=== PATIENT | male | born 1970 | race Caucasian/White ===

== ENCOUNTER → 2018-03-02 07:10 | Outpatient (CLI) | payer OTHER, SELFPAY ==
[2018-03-02 08:20] LABS: Cholesterol 195 mg/dL (200); High Density Lipoprotein 43 mg/dL; Triglycerides 188 mg/dL; Very Low Density Lipoprotein 38 mg/dL (5-40)
--- OUTSIDE RECORDS SUMMARY | 2018-05-06 09:09 | XMS RPT_ITS ---
:1970 Author Organization OH[facility] Care Team Providers Name Role Phone JUAN F FARMER Attending Unavailable FARMER, JUAN F L Referring Unavailable FARMER, JUAN F L Referring Unavailable FARMER, JUAN F L Referring Unavailable FARMER, JUAN F L Referring Unavailable FARMER, JUAN F L Referring Unavailable FARMER, JUAN F L Referring Unavailable FARMER, JUAN F L Attending Unavailable FARMER, JUAN F L Referring Unavailable FARMER, JUAN F L Referring Unavailable FARMER, JUAN F L Attending Unavailable FARMER, JUAN F L Referring Unavailable FARMER, JUAN F L Referring Unavailable Farmer, Juan F Attending Unavailable Farmer, Juan F Referring Unavailable Farmer, Juan F Primary Care Unavailable PROBLEMS PROBLEMS DATE TYPE CONDITION / CODE ATTENDING STATUS SOURCE 03/02/2018 Unknown Z79.899 - Other Farmer, Active [place] [facility] (current) drug Hospital therapy / Repository Z79.899(ICD-10) 08/14/2017 Active Abnormal levels NA Active [facility] of other serum [facility] enzymes / Repository R74.8(ICD-10) 08/14/2017 Active Myalgia, NA Active [facility] unspecified site [facility] / M79.10(ICD-10) Repository 03/07/2017 Active Frequency of NA Active [facility] micturition / [facility] R35.0(ICD-10) Repository 08/13/2017 Active Other polyuria / NA Active [facility] R35.8(ICD-10) [facility] Repository 07/05/2017 Active Tremor, NA Active [facility] unspecified / [facility] R25.1(ICD-10) Repository 07/05/2017 Active Paresthesia of NA Active [facility] skin / [facility] R20.2(ICD-10) Repository 07/03/2017 Active Myalgia / NA Active [facility] M79.1(ICD-10) [facility] Repository 06/29/2017 Active Muscle weakness NA Active [facility] (generalized) / [facility] M62.81(ICD-10) Repository 06/29/2017 Active Other specified NA Active [facility] disorders of [facility] muscle / Repository M62.89(ICD-10) 06/29/2017 Active Impaired fasting NA Active [facility] glucose / [facility] R73.01(ICD-10) Repository PROCEDURES PROCEDURES No Procedure Records FoundRESULTS RESULTS LIPID PROFILE Collected: 03/02/2018 Status: F Source: [place] 7:[address] [facility] REPOSITORY TYPE CODE TESTS RESULT OUT OF RANGE REFERENCE UNITS LAB L501.4900 200 mg/dL Normal CHOL 195 Result Comment: <200 mg/dL Desirable 200-240 mg/dL Borderline >240 mg/dL High Risk LAB L501.5000 mg/dL Normal TRIG 188 Result Comment: The drugs N-Acetylcysteine and Metamizole may falsely depress this assay. Serum Triglycerides Reference Interval Normal <150 mg/dL Borderline high 150 - 199 mg/dL High 200 - 499 mg/dL Very High > or = 500 mg/dL LAB L501.6400 mg/dL Normal HDL 43 Result Comment: The drugs N-Acetylcysteine and Metamizole may falsely depress this assay. Reference Range HDL <40 mg/dL Low HDL Cholesterol HDL >or= 60 mg/dL High HDL Cholesterol LAB L501.6500 0-130 mg/dL Normal LDL 114 LAB L501.6600 5-40 mg/dL Normal VLDL 38 Performed By: #### L500.4100 #### [facility] [address] [place], [place], [address] PROGRESS Observed: 11/14/2017 Status: COMPLETED Source: [place] 5:34 PM CLINIC [facility] REPOSITORY HNO ID: [id number] Author: Juan F Farmer Service: (none) Author Type: Physician Type: Progress Notes Filed: 11/14/2017 5:41 PM Note Text: CC: Fabian Juarez is a 46 year old male who presents to the office for follow up HPI: Previously Patient present with in the office today ? Persistent and increased symptoms of hand tremor, with rest and with action per patient, b/l hands, right >left, is RHD. 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 ?Not dropping objects, no known injuries. ?Also weakness b/l thighs/legs and tingling in b/l lower legs diffusely. ?No recent falls, slow to get out of a seated position to stand. Difficulty with even climbing 1 flight of steps. ? is concerned that he is sometimes awkward in his gait, shuffling like. ??Father had parkinson's disease ? ?Arthritis, hand, feet, shoulders, neck, back, slightly worse in cold winter weather. ?Trying to keep joints warm ? Hemorrhoids, internal, ?Didn't like proctofoam given by EMERGENCY DEPARTMENT doctor, flared up recently due to constipation, trying to keep bowels more regular with less soda and coffee intake, more water intake. ?Intermittent BRBPR when flared up. ? Urinary frequency symptoms, now urinating 1-2 times per night for the last few months, no known hx of BPH or prostate cancer, doesn't know fmhx well. ?No burning or blood in urine or flank pain, never on medication prior for this. ? Muscle spasms, sometimes in legs or neck or arms, no recent trauma ? HPL, recently diagnosed, was started on Lipitor ? Cholesterol, Total Date Value Ref Range Status 01/22/2017 171 100 - 199 mg/dL Final ? HDL Cholesterol Date Value Ref Range Status 01/22/2017 37 (L) >45 mg/dL Final ? LDL Cholesterol Date Value Ref Range Status 01/22/2017 91 60 - 129 mg/dL Final ? Triglyceride Date Value Ref Range Status 01/22/2017 215 (H) 30 - 149 mg/dL Final ? At last appt in August ? Was having some muscle aches, CK was elevated, myoglobin was normal in urine, was recently started on Lipitor for HPL ? Continues to have urinary frequency and polyuria, no flank pain or hematuria, sometimes urgency symptoms. Taking Flomax at bedtime with some relief. Still having daytime symptoms, hba1c was normal ? Occasional headaches, is concerned about if his BLOOD PRESSURE is elevated, hasn't been regularly checking BLOOD PRESSURE at home Currently Muscle aches, b/l leg weakness, seems to be continuing, also feels like he is still shuffling his gait and not feeling well balanced in general. Stuttering a lot, word finding difficulty. No obvious memory short term or jail recall difficulty. No getting lost when driving, no seizure like tonic clonic movement concerns. Had CT brain in the recent past which was normal Headaches are occasional, no worsening of symptoms Elevated CK, last checked in August, Hasn't been on statins in months. Has appt for opinion by Neurologist in 3 weeks, Dr. Malagon PAST MEDICAL HISTORY Diagnosis Date - Arthritis ? Rheumatoid arthrits [facility] Dr[facility] PAST SURGICAL HISTORY Procedure Laterality Date - APPENDECTOMY 1977 - HERNIA REPAIR HX 09/2003 Current Outpatient Prescriptions: tamsulosin ER (FLOMAX) 0.4 mg cp24 Take 1 capsule by mouth daily at bedtime. latanoprost (XALATAN) 0.005 % ophthalmic solution Use 1 Drop in both eyes daily at bedtime. TO AFFECTED EYE(S) Ibuprofen 200 mg cap Take by mouth every 4 hours as needed. FOR PAIN. No current facility-administered medications for this visit. ALLERGIES Allergen Reactions - Penicillins Swelling - Pravachol [Pravasta* Myalgia - Vicodin [Hydrocodon* Mental Status Change Social History Marital status: Spouse name: Years of education: Number of children: Social History Main Topics Smoking status: Former Smoker Packs/day: 0.00 Years: 0.00 Quit date: 02/12/2003 Smokeless tobacco: Current User Alcohol use: Yes Comment: occasionally Drug use: No Sexual activity: Yes Partners with: Female ROS: See HPI PE: BP 120/84 Pulse 64 Temp (Src) 98.2 (Left Tympanic) Resp 16 Wt 244 lb (110.7kg) Gen: AANDOX3, NAD, non-toxic appearing HEENT: PERRLA, EOMs intact b/l, nares without drainage, pharynx without erythema, exudate, lesions, or drainage. Uvula midline. Neck: No LAD, no thyromegaly, no meningismus. CV: RRR, no murmur Lungs: CTA b/l, no wheezing Skin: No rashes, lesions, or wounds on exposed skin. Muscle weakness with thigh / hip flexion symmetric b/l legs, normal UE muscle strength which is symmetric Negative SLR, no spinal TTP, mild thoracic paraspinal and latissimus area TTP, mild thigh proximal TTP without obvious deformity Normal shoulder shrug and biceps/triceps strength Some word finding difficulty present, able to answer questions appropriately ASSESSMENT/PLAN: 1. Muscle stiffness - ICD9: 728.9, ICD10: M62.89 (primary diagnosis) - unsure of cause, recheck labs, follow up with neurologist for further work up / opinion - ? Need for MRI brain and muscle/nerve biopsy 2. Generalized muscle weakness - ICD9: 728.87, ICD10: M62.81 - see above 3. Myalgia - ICD9: 729.1, ICD10: M79.10 - see above - TSH BLD - COMP METABOLIC PANEL - LD LACTATE DEHYDRO 4. Stuttering - ICD9: 315.35, ICD10: F80.81 - see above 5. Word finding difficulty - ICD9: V40.1, ICD10: R47.89 - see above 6. Elevated CK - ICD9: 790.5, ICD10: R74.8 - see above - CK CREATINE KINASE - TSH BLD - COMP METABOLIC PANEL - LD LACTATE DEHYDRO Juan F Farmer DO Return if no improvement. Follow up with Juan F Farmer DO. Discussed risks, benefits, alternatives, and potential side effects of medications. Patient/Guardian expressed understanding and agreed with the plan. See patient instructions. Juan F Farmer DO [address] [place] [address] CK Collected: 11/14/2017 Status: F Source: [facility] 5:26 PM MAIN CAMPUS REPOSITORY TYPE CODE TESTS RESULT OUT OF RANGE REFERENCE UNITS LAB CK 51-298 U/L High CK 350 Performed By: #### CK, CMP, LD6, TSH #### [facility] [address] [place], [place] [address] COMP METABOLIC PANEL Collected: 11/14/2017 Status: F Source: [place] 5:26 PM [facility] REPOSITORY TYPE CODE TESTS RESULT OUT OF REFERENCE UNITS RANGE LAB TP 6.3-8.0 g/dL Protein, Total 7.2 LAB ALB 3.9-4.9 g/dL Albumin 4.2 LAB CA 8.5-10.2 mg/dL Calcium, Total 9.6 LAB TBIL 0.2-1.3 mg/dL Bilirubin, Total 0.6 LAB ALKP 38-113 U/L Alkaline Phosphatase 87 LAB AST 14-40 U/L AST 24 LAB GLU 74-99 mg/dL Glucose 88 Result Comment: The [place] [employer] (ADA) provides guidance for cutoff values for fasting glucose and random glucose. The ADA defines fasting as no caloric intake for at least 8 hours. Fas ting plasma glucose results between 100 to 125 mg/dL indicate increased risk for diabetes (prediabetes). Fasting plasma glucose results greater than or equal to 126 mg/dL meet the criteria for diagnosis of diabetes. In the absence of unequivocal hyperglycemia, results should be confirmed by repeat testing. In a patient with classic symptoms of hyperglycemia or hyperglycemic crisis, random plasma glucose results greater than or equal to 200 mg/dL meet the criteria for diagnosis of diabetes. Reference: Standards of Medical Care in Diabetes 2016, [place] [employer]. Diabetes Care. 2016.39(Suppl 1). LAB BUN 9-24 mg/dL BUN 16 LAB CRET 0.73-1.22 mg/dL Creatinine 1.07 LAB NA 136-144 mmol/L Sodium 138 LAB K 3.7-5.1 mmol/L Potassium 4.4 LAB CL 97-105 mmol/L Chloride 101 LAB CO2 22-30 mmol/L CO2 22 LAB AGAP 9-18 mmol/L Anion Gap 15 LAB ALT 10-54 U/L ALT 25 LAB GFRAA eGFR- Amer. >60 LAB GFRNAA . eGFR-All Other Races >60 Result Comment: eGFR (Estimated GFR) Units of measure: mL/min/1.73 meters squared eGFR is derived from the reexpressed MDRD Study equation using the following parameters: serum creatinine, age, gender and race. The creatinine assay has been calibrated to be traceable to IDMS. An eGFR <60 mL/min/1.73m2 for >3 months is consistent with chronic kidney disease. Refer to KDOQI guidelines for clinical interpretation. In patients with unstable renal function, e.g. those with acute kidney injury, the eGFR may not accurately reflect actual GFR. Performed By: #### CK, CMP, LD6, TSH #### [facility] [employer] [address] [place], [place] [address] LD Collected: 11/14/2017 Status: F Source: [facility] 5:26 PM [facility] REPOSITORY TYPE CODE TESTS RESULT OUT OF RANGE REFERENCE UNITS LAB LD 135-225 U/L LD 204 Performed By: #### CK, CMP, LD6, TSH #### [facility] [employer] [address], [place] [address] TSH Collected: 11/14/2017 Status: F Source: [place] 5:26 PM [facility] REPOSITORY TYPE CODE TESTS RESULT OUT OF RANGE REFERENCE UNITS LAB TSH 0.400-5.500 uU/mL TSH 1.880 Performed By: #### CK, CMP, LD6, TSH #### [facility] [employer] [address] [place] [address] CNOV Observed: 11/14/2017 Status: COMPLETED Source: [place] 5:00 PM [facility] REPOSITORY Office Visit (FAMPWS) FABIAN JUAREZ ([id number]) 1970 M Date Time Provider Department 11/14/17 5:00 PM JUAN F FARMER FAMPWS During your visit today, we recorded the following information about you: Temperature Pulse Respiration Blood pressure 98.2 degrees 64/minute 16/minute 120/84 Weight 110.7 kg Juan F Farmer DO 11/14/2017 5:41 PM Signed CC: Fabian Juarez is a 46 year old male who presents to the office for follow up HPI: Previously Patient present with in the office today ? Persistent and increased symptoms of hand tremor, with rest and with action per patient, b/l hands, right >left, is RHD. 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 ?Not dropping objects, no known injuries. ?Also weakness b/l thighs/legs and tingling in b/l lower legs diffusely. ?No recent falls, slow to get out of a seated position to stand. Difficulty with even climbing 1 flight of steps. ? is concerned that he is sometimes awkward in his gait, shuffling like. ??Father had parkinson's disease ? ?Arthritis, hand, feet, shoulders, neck, back, slightly worse in cold winter weather. ?Trying to keep joints warm ? Hemorrhoids, internal, ?Didn't like proctofoam given by EMERGENCY DEPARTMENT doctor, flared up recently due to constipation, trying to keep bowels more regular with less soda and coffee intake, more water intake. ?Intermittent BRBPR when flared up. ? Urinary frequency symptoms, now urinating 1-2 times per night for the last few months, no known hx of BPH or prostate cancer, doesn't know fmhx well. ?No burning or blood in urine or flank pain, never on medication prior for this. ? Muscle spasms, sometimes in legs or neck or arms, no recent trauma ? HPL, recently diagnosed, was started on Lipitor ? Cholesterol, Total Date Value Ref Range Status 01/22/2017 171 100 - 199 mg/dL Final ? HDL Cholesterol Date Value Ref Range Status 01/22/2017 37 (L) >45 mg/dL Final ? LDL Cholesterol Date Value Ref Range Status 01/22/2017 91 60 - 129 mg/dL Final ? Triglyceride Date Value Ref Range Status 01/22/2017 215 (H) 30 - 149 mg/dL Final ? At last appt in August ? Was having some muscle aches, CK was elevated, myoglobin was normal in urine, was recently started on Lipitor for HPL ? Continues to have urinary frequency and polyuria, no flank pain or hematuria, sometimes urgency symptoms. Taking Flomax at bedtime with some relief. Still having daytime symptoms, hba1c was normal ? Occasional headaches, is concerned about if his BLOOD PRESSURE is elevated, hasn't been regularly checking BLOOD PRESSURE at home Currently Muscle aches, b/l leg weakness, seems to be continuing, also feels like he is still shuffling his gait and not feeling well balanced in general. Stuttering a lot, word finding difficulty. No obvious memory short term or exterminator recall difficulty. No getting lost when driving, no seizure like tonic clonic movement concerns. Had CT brain in the recent past which was normal Headaches are occasional, no worsening of symptoms Elevated CK, last checked in August, Hasn't been on statins in months. Has appt for opinion by Neurologist in 3 weeks, Dr. Malagon PAST MEDICAL HISTORY Diagnosis Date - Arthritis ? Rheumatoid arthrits [facility] Dr. Dominguez[facility] OA PAST SURGICAL HISTORY Procedure Laterality Date - APPENDECTOMY 1977 - HERNIA REPAIR HX 09/2003 Current Outpatient Prescriptions: tamsulosin ER (FLOMAX) 0.4 mg cp24 Take 1 capsule by mouth daily at bedtime. latanoprost (XALATAN) 0.005 % ophthalmic solution Use 1 Drop in both eyes daily at bedtime. TO AFFECTED EYE(S) Ibuprofen 200 mg cap Take by mouth every 4 hours as needed. FOR PAIN. No current facility-administered medications for this visit. ALLERGIES Allergen Reactions - Penicillins Swelling - Pravachol [Pravasta* Myalgia - Vicodin [Hydrocodon* Mental Status Change Social History Marital status: Spouse name: Years of education: Number of children: Social History Main Topics Smoking status: Former Smoker Packs/day: 0.00 Years: 0.00 Quit date: 02/12/2003 Smokeless tobacco: Current User Alcohol use: Yes Comment: occasionally Drug use: No Sexual activity: Yes Partners with: Female ROS: See HPI PE: BP 120/84 Pulse 64 Temp (Src) 98.2 (Left Tympanic) Resp 16 Wt 244 lb (110.7kg) Gen: AANDOX3, NAD, non-toxic appearing HEENT: PERRLA, EOMs intact b/l, nares without drainage, pharynx without erythema, exudate, lesions, or drainage. Uvula midline. Neck: No LAD, no thyromegaly, no meningismus. CV: RRR, no murmur Lungs: CTA b/l, no wheezing Skin: No rashes, lesions, or wounds on exposed skin. Muscle weakness with thigh / hip flexion symmetric b/l legs, normal UE muscle strength which is symmetric Negative SLR, no spinal TTP, mild thoracic paraspinal and latissimus area TTP, mild thigh proximal TTP without obvious deformity Normal shoulder shrug and biceps/triceps strength Some word finding difficulty present, able to answer questions appropriately ASSESSMENT/PLAN: 1. Muscle stiffness - ICD9: 728.9, ICD10: M62.89 (primary diagnosis) - unsure of cause, recheck labs, follow up with neurologist for further work up / opinion - ? Need for MRI brain and muscle/nerve biopsy 2. Generalized muscle weakness - ICD9: 728.87, ICD10: M62.81 - see above 3. Myalgia - ICD9: 729.1, ICD10: M79.10 - see above - TSH BLD - COMP METABOLIC PANEL - LD LACTATE DEHYDRO 4. Stuttering - ICD9: 315.35, ICD10: F80.81 - see above 5. Word finding difficulty - ICD9: V40.1, ICD10: R47.89 - see above 6. Elevated CK - ICD9: 790.5, ICD10: R74.8 - see above - CK CREATINE KINASE - TSH BLD - COMP METABOLIC PANEL - LD LACTATE DEHYDRO Juan F Farmer DO Return if no improvement. Follow up with Juan F Farmer DO. Discussed risks, benefits, alternatives, and potential side effects of medications. Patient/Guardian expressed understanding and agreed with the plan. See patient instructions. Juan F Farmer DO [address] [place] [address] Referring Provider: JUAN F FARMER [[id number]] Allergies As of Date: 11/14/2017 Noted Allergy Reaction PENICILLINS 02/23/2014 7 - Swelling PRAVACHOL (PRAVASTATIN SODIUM) 11/14/2017 17 - Myalgia VICODIN (HYDROCODONE-ACETAMINOPHE*12/26/2013 1 - Mental Status Change Date Reviewed: 11/14/2017 Reviewed by: Michelle Pedroza LPN - Fully Assessed Reason for Visit: Follow Up [171] Cmt: 3 months Primary Visit Diagnosis:Muscle stiffness [M62.89] Other Visit Diagnoses:Generalized muscle weakness [M62.81] Myalgia [M79.10] Stuttering [F80.81] Word finding difficulty [R47.89] Elevated CK [R74.8] Order(s):CK CREATINE KINASE [SQCK] Order #: [id number] FUTURE TSH BLD [SQTSH] Order #: [id number] FUTURE COMP METABOLIC PANEL [SQCMP] Order #: [id number] FUTURE LD LACTATE DEHYDRO [SQLD6] Order #: [id number] FUTURE Prescriptions as of 11/14/2017 Sig: TAMSULOSIN 0.4 MG CAPSULE Take 1 capsule by mouth daily* LATANOPROST 0.005 % EYE DROPS Use 1 Drop in both eyes daily* IBUPROFEN 200 MG CAPSULE Take by mouth every 4 hours * Medication notes this encounter PRAVASTATIN 20 MG TABLET >> Michelle Pedroza LPN 11/14/2017 4:57 PM >> MICHELLE PEDROZA LPN SunNov 14, 2017 4:57 PM Finished Problem List As Of Date 11/14/2017 Noted Resolved Cervical radiculopathy [M54.12] INVALID FOR* Mild carpal tunnel syndrome of left wrist [G56.*INVALID FOR* Neck pain [M54.2] INVALID FOR* Cervical radiculopathy at C8 [M54.12] INVALID FOR* Hypertriglyceridemia [E78.1] INVALID FOR* Obesity, Class II, BMI 35-39.9 [E66.9] INVALID FOR* Well adult exam [Z00.00] INVALID FOR* Muscle spasm [M62.838] INVALID FOR* Urinary frequency [R35.0] INVALID FOR* Internal hemorrhoids [K64.8] INVALID FOR* Hyperlipidemia, mixed [E78.2] INVALID FOR* Elevated blood pressure reading without diagnos*INVALID FOR* Myalgia [M79.10] INVALID FOR* Elevated CK [R74.8] INVALID FOR* Polyuria [R35.8] INVALID FOR* Medications Discontinued During This Encounter pravastatin (PRAVACHOL) 20 mg tablet 30 t* 5 06/27/2017 11/14/2017 Route: ORAL Sig: Take 1 tablet by mouth once daily. Disc: Reason for discontinue is not on file. Encounter Status:Closed by JUAN F FARMER DO on 11/14/17 PROGRESS Observed: 08/14/2017 Status: COMPLETED Source: [place] 7:27 AM [facility] [place] REPOSITORY O ID: [id number] Author: Juan F Farmer Service: (none) Author Type: Physician Type: Progress Notes Filed: 08/14/2017 7:32 AM Note Text: CC: Fabian Juarez is a 46 year old male who presents to the office for follow up HPI: Previously Patient present with in the office today ? Persistent and increased symptoms of hand tremor, with rest and with action per patient, b/l hands, right >left, is RHD. 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 Not dropping objects, no known injuries. Also weakness b/l thighs/legs and tingling in b/l lower legs diffusely. No recent falls, slow to get out of a seated position to stand. Difficulty with even climbing 1 flight of steps. is concerned that he is sometimes awkward in his gait, shuffling like. Father had parkinson's disease ? ?Arthritis, hand, feet, shoulders, neck, back, slightly worse in cold winter weather. Trying to keep joints warm ? Hemorrhoids, internal, Didn't like proctofoam given by EMERGENCY DEPARTMENT doctor, flared up recently due to constipation, trying to keep bowels more regular with less soda and coffee intake, more water intake. Intermittent BRBPR when flared up. ? Urinary frequency symptoms, now urinating 1-2 times per night for the last few months, no known hx of BPH or prostate cancer, doesn't know fmhx well. No burning or blood in urine or flank pain, never on medication prior for this. ? Muscle spasms, sometimes in legs or neck or arms, no recent trauma ? HPL, recently diagnosed, was started on Lipitor ? Cholesterol, Total Date Value Ref Range Status 01/22/2017 171 100 - 199 mg/dL Final HDL Cholesterol Date Value Ref Range Status 01/22/2017 37 (L) >45 mg/dL Final LDL Cholesterol Date Value Ref Range Status 01/22/2017 91 60 - 129 mg/dL Final Triglyceride Date Value Ref Range Status 01/22/2017 215 (H) 30 - 149 mg/dL Final Currently Was having some muscle aches, CK was elevated, myoglobin was normal in urine, was recently started on Lipitor for HPL Continues to have urinary frequency and polyuria, no flank pain or hematuria, sometimes urgency symptoms. Taking Flomax at bedtime with some relief. Still having daytime symptoms, hba1c was normal Occasional headaches, is concerned about if his BLOOD PRESSURE is elevated, hasn't been regularly checking BLOOD PRESSURE at home PAST MEDICAL HISTORY Diagnosis Date - Arthritis ? Rheumatoid arthrits [facility] Dr[facility] Dominguez[facility] OA PAST SURGICAL HISTORY Procedure Laterality Date - APPENDECTOMY 1977 - HERNIA REPAIR HX 09/2003 Current Outpatient Prescriptions: tamsulosin ER (FLOMAX) 0.4 mg cp24 Take 1 capsule by mouth daily at bedtime. pravastatin (PRAVACHOL) 20 mg tablet Take 1 tablet by mouth once daily. latanoprost (XALATAN) 0.005 % ophthalmic solution Use 1 Drop in both eyes daily at bedtime. TO AFFECTED EYE(S) Ibuprofen 200 mg cap Take by mouth every 4 hours as needed. FOR PAIN. No current facility-administered medications for this visit. ALLERGIES Allergen Reactions - Penicillins Swelling - Vicodin [Hydrocodon* Mental Status Change Social History Marital status: Spouse name: Years of education: Number of children: Social History Main Topics Smoking status: Former Smoker Packs/day: 0.00 Years: 0.00 Quit date: 02/12/2003 Smokeless tobacco: Current User Alcohol use: Yes Comment: occasionally Drug use: No Sexual activity: Yes Partners with: Female ROS: See HPI PE: BP 130/88 Pulse 64 Temp (Src) 98 (Left Tympanic) Resp 20 Wt 247 lb (112.0kg) Gen: AANDOX3, NAD, non-toxic appearing HEENT: PERRLA, EOMs intact b/l, nares without drainage, pharynx without erythema, exudate, lesions, or drainage. Uvula midline. Neck: No LAD, no thyromegaly, no meningismus. CV: RRR, no murmur, normal s1s2 Lungs: CTA b/l, no wheezing Skin: No rashes, lesions, or wounds on exposed skin. Trace b/l LE edema, normal pulses Abd: obese ASSESSMENT/PLAN: 1. Polyuria - ICD9: 788.42, ICD10: R35.8 (primary diagnosis) - unsure of cause, may need to consider urology referral for additional testing vs. Trial of oxybutynin - ADH/ARGININE VASOPRS - COMP METABOLIC PANEL - URINALYSIS WITH MICROSCOPIC 2. Urinary frequency - ICD9: 788.41, ICD10: R35.0 - unsure of cause, may need to consider urology referral for additional testing vs. Trial of oxybutynin, is taking Flomax - ADH/ARGININE VASOPRS - COMP METABOLIC PANEL - URINALYSIS WITH MICROSCOPIC 3. Elevated CK - ICD9: 790.5, ICD10: R74.8 - recheck level, if still high then need to d/c statin - CK CREATINE KINASE 4. Myalgia - ICD9: 729.1, ICD10: M79.1 - see above 5. Hyperlipidemia, mixed - ICD9: 272.2, ICD10: E78.2 - suboptimal control - Encouraged following a low fat, low cholesterol diet. - Discussed the benefits of regular aerobic exercise and weight loss. 6. Elevated blood pressure reading without diagnosis of hypertension - ICD9: 796.2, ICD10: R03.0 - Encouraged dietary sodium restriction/DASH diet - Recommended regular aerobic exercise. - Recommend home blood pressure monitoring, to bring results in on next visit - Goal of BP <130/80 Juan F Farmer DO Return if no improvement. Follow up with Juan F Farmer DO. Discussed risks, benefits, alternatives, and potential side effects of medications. Patient/Guardian expressed understanding and agreed with the plan. See patient instructions. Juan F Farmer DO [address] [place] [address] URINALYSIS WITH Collected: 08/13/2017 Status: F Source: [facility] 4:10 PM [facility] REPOSITORY TYPE CODE TESTS RESULT OUT OF RANGE REFERENCE UNITS LAB UCOL Yellow Color Yellow LAB [facility] Clear Clarity Abnormal Cloudy Alert LAB UGLUC Negative mg/dL Glucose, Urine Negative LAB UBIL Negative Bilirubin, Urine Negative LAB UKET Negative Ketones, Urine Negative LAB USPG 1.005-1.030 Specific [place], Ur 1.027 LAB UHGB Negative Hemoglobin/Blood, Negative Ur LAB UPH 4.5-8.0 pH 5.0 LAB UPROT Negative mg/dL Protein, Urine Negative LAB UUROB Normal Urobilinogen Normal LAB UNITR Negative Nitrites Negative LAB ULKEST Negative Leukest Negative LAB UCOM Comments SEE COMMENT Result Comment: N/A LAB UMCOM Urine SEE Syd Comment COMMENT Result Comment: N/A LAB UWBC 0-5 /HPF WBC 0-5 LAB URBC 0-3 /HPF RBC 0-3 LAB UCRYS 0 /HPF Abnormal Alert Crystals SEE COMMENT Result Comment: Moderate Calcium Oxalate Crystal Performed By: #### UAWMIC #### [facility] [employer] [address] [place], [place] [address] CK Collected: 08/13/2017 Status: F Source: [facility] 4:07 PM [facility] [place] REPOSITORY TYPE CODE TESTS RESULT OUT OF RANGE REFERENCE UNITS LAB CK 51-298 U/L High CK 326 Result Comment: Please note the updated, gender-specific reference range for this test (effective 01/27/2016). Performed By: #### CK, CMP #### [facility] [employer] [address] [place], [place] [address] #### AVAS #### [facility] [address] [place] [address] [phone] COMP METABOLIC PANEL Collected: 08/13/2017 Status: F Source: [place] 4:07 PM [facility] [place] REPOSITORY TYPE CODE TESTS RESULT OUT OF REFERENCE UNITS RANGE LAB TP 6.3-8.0 g/dL Protein, Total 7.0 LAB ALB 3.9-4.9 g/dL Albumin 4.4 LAB CA 8.5-10.2 mg/dL Calcium, Total 9.7 LAB TBIL 0.2-1.3 mg/dL Bilirubin, Total 0.5 LAB ALKP 36-108 U/L Alkaline Phosphatase 75 LAB AST 14-40 U/L AST 28 LAB GLU 74-99 mg/dL Glucose 75 Result Comment: The [place] [employer] Association (ADA) provides guidance for cutoff values for fasting glucose and random glucose. The ADA defines fasting as no caloric intake for at least 8 hours. Fas ting plasma glucose results between 100 to 125 mg/dL indicate increased risk for diabetes (prediabetes). Fasting plasma glucose results greater than or equal to 126 mg/dL meet the criteria for diagnosis of diabetes. In the absence of unequivocal hyperglycemia, results should be confirmed by repeat testing. In a patient with classic symptoms of hyperglycemia or hyperglycemic crisis, random plasma glucose results greater than or equal to 200 mg/dL meet the criteria for diagnosis of diabetes. Reference: Standards of Medical Care in Diabetes 2016, [place] [employer] Association. Diabetes Care. 2016.39(Suppl 1). LAB BUN 9-24 mg/dL BUN 21 LAB CRET 0.73-1.22 mg/dL Creatinine 1.09 LAB NA 136-144 mmol/L Sodium 137 LAB K 3.7-5.1 mmol/L Potassium 4.1 LAB CL 97-105 mmol/L Chloride 101 LAB CO2 22-30 mmol/L CO2 22 LAB AGAP 9-18 mmol/L Anion Gap 14 LAB ALT 10-54 U/L ALT 31 LAB GFRAA eGFR- Amer. >60 LAB GFRNAA . eGFR-All Other Races >60 Result Comment: eGFR (Estimated GFR) Units of measure: mL/min/1.73 meters squared eGFR is derived from the reexpressed MDRD Study equation using the following parameters: serum creatinine, age, gender and race. The creatinine assay has been calibrated to be traceable to IDMS. An eGFR <60 mL/min/1.73m2 for >3 months is consistent with chronic kidney disease. Refer to KDOQI guidelines for clinical interpretation. In patients with unstable renal function, e.g. those with acute kidney injury, the eGFR may not accurately reflect actual GFR. Performed By: #### CK, CMP #### [facility] [address] [place], [place] [address] #### AVAS #### [facility] [address] [place] [address] [phone] ARGININE VASOPRESSIN Collected: 08/13/2017 Status: F Source: [facility] 4:07 PM [facility] REPOSITORY TYPE CODE TESTS RESULT OUT OF REFERENCE UNITS RANGE LAB ADH 0.0-6.9 pg/mL Arginine Vasopressin 0.8 Result Comment: (NOTE) INTERPRETIVE INFORMATION: Arginine Vasopressin Hormone Test developed and characteristics determined by [facility]. See Compliance Statement D: [employer]/ Performed by [facility], [address] [place], [place] [id number] [email or web address], Melo Bella MD, Lab. Director Performed By: #### RACHEL, SHEY #### [facility] [address] [place], [place] [address] #### AVAS #### [facility] [address] [place] [address] [phone] CNOV Observed: 08/13/2017 Status: COMPLETED Source: [facility] 3:20 PM [facility] REPOSITORY Office Visit (FAMPWS) FABIAN JUAREZ Chetan ([id number]) 1970 M Date Time Provider Department 08/13/17 3:20 PM [facility] F [facility] During your visit today, we recorded the following information about you: Temperature Pulse Respiration Blood pressure 98 degrees 64/minute 20/minute 130/88 Weight 112 kg Juan F Farmer, 08/13/2017 3:49 PM Signed Monitor blood pressure- goal is 130/80 or less. If in 140s/90s or higher then let me know and we will need to start Losartan or Metoprolol Juan F Farmer DO 08/14/2017 7:32 AM Signed CC: Fabian Juarez is a 46 year old male who presents to the office for follow up HPI: Previously Patient present with in the office today ? Persistent and increased symptoms of hand tremor, with rest and with action per patient, b/l hands, right >left, is RHD. 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 Not dropping objects, no known injuries. Also weakness b/l thighs/legs and tingling in b/l lower legs diffusely. No recent falls, slow to get out of a seated position to stand. Difficulty with even climbing 1 flight of steps. is concerned that he is sometimes awkward in his gait, shuffling like. Father had parkinson's disease ? ?Arthritis, hand, feet, shoulders, neck, back, slightly worse in cold winter weather. Trying to keep joints warm ? Hemorrhoids, internal, Didn't like proctofoam given by EMERGENCY DEPARTMENT doctor, flared up recently due to constipation, trying to keep bowels more regular with less soda and coffee intake, more water intake. Intermittent BRBPR when flared up. ? Urinary frequency symptoms, now urinating 1-2 times per night for the last few months, no known hx of BPH or prostate cancer, doesn't know fmhx well. No burning or blood in urine or flank pain, never on medication prior for this. ? Muscle spasms, sometimes in legs or neck or arms, no recent trauma ? HPL, recently diagnosed, was started on Lipitor ? Cholesterol, Total Date Value Ref Range Status 01/22/2017 171 100 - 199 mg/dL Final HDL Cholesterol Date Value Ref Range Status 01/22/2017 37 (L) >45 mg/dL Final LDL Cholesterol Date Value Ref Range Status 01/22/2017 91 60 - 129 mg/dL Final Triglyceride Date Value Ref Range Status 01/22/2017 215 (H) 30 - 149 mg/dL Final Currently Was having some muscle aches, CK was elevated, myoglobin was normal in urine, was recently started on Lipitor for HPL Continues to have urinary frequency and polyuria, no flank pain or hematuria, sometimes urgency symptoms. Taking Flomax at bedtime with some relief. Still having daytime symptoms, hba1c was normal Occasional headaches, is concerned about if his BLOOD PRESSURE is elevated, hasn't been regularly checking BLOOD PRESSURE at home PAST MEDICAL HISTORY Diagnosis Date - Arthritis ? Rheumat[facility] PAST SURGICAL HISTORY Procedure Laterality Date - APPENDECTOMY 1977 - HERNIA REPAIR HX 09/2003 Current Outpatient Prescriptions: tamsulosin ER (FLOMAX) 0.4 mg cp24 Take 1 capsule by mouth daily at bedtime. pravastatin (PRAVACHOL) 20 mg tablet Take 1 tablet by mouth once daily. latanoprost (XALATAN) 0.005 % ophthalmic solution Use 1 Drop in both eyes daily at bedtime. TO AFFECTED EYE(S) Ibuprofen 200 mg cap Take by mouth every 4 hours as needed. FOR PAIN. No current facility-administered medications for this visit. ALLERGIES Allergen Reactions - Penicillins Swelling - Vicodin [Hydrocodon* Mental Status Change Social History Marital status: Spouse name: Years of education: Number of children: Social History Main Topics Smoking status: Former Smoker Packs/day: 0.00 Years: 0.00 Quit date: 02/12/2003 Smokeless tobacco: Current User Alcohol use: Yes Comment: occasionally Drug use: No Sexual activity: Yes Partners with: Female ROS: See HPI PE: BP 130/88 Pulse 64 Temp (Src) 98 (Left Tympanic) Resp 20 Wt 247 lb (112.0kg) Gen: AANDOX3, NAD, non-toxic appearing HEENT: PERRLA, EOMs intact b/l, nares without drainage, pharynx without erythema, exudate, lesions, or drainage. Uvula midline. Neck: No LAD, no thyromegaly, no meningismus. CV: RRR, no murmur, normal s1s2 Lungs: CTA b/l, no wheezing Skin: No rashes, lesions, or wounds on exposed skin. Trace b/l LE edema, normal pulses Abd: obese ASSESSMENT/PLAN: 1. Polyuria - ICD9: 788.42, ICD10: R35.8 (primary diagnosis) - unsure of cause, may need to consider urology referral for additional testing vs. Trial of oxybutynin - ADH/ARGININE VASOPRS - COMP METABOLIC PANEL - URINALYSIS WITH MICROSCOPIC 2. Urinary frequency - ICD9: 788.41, ICD10: R35.0 - unsure of cause, may need to consider urology referral for additional testing vs. Trial of oxybutynin, is taking Flomax - ADH/ARGININE VASOPRS - COMP METABOLIC PANEL - URINALYSIS WITH MICROSCOPIC 3. Elevated CK - ICD9: 790.5, ICD10: R74.8 - recheck level, if still high then need to d/c statin - CK CREATINE KINASE 4. Myalgia - ICD9: 729.1, ICD10: M79.1 - see above 5. Hyperlipidemia, mixed - ICD9: 272.2, ICD10: E78.2 - suboptimal control - Encouraged following a low fat, low cholesterol diet. - Discussed the benefits of regular aerobic exercise and weight loss. 6. Elevated blood pressure reading without diagnosis of hypertension - ICD9: 796.2, ICD10: R03.0 - Encouraged dietary sodium restriction/DASH diet - Recommended regular aerobic exercise. - Recommend home blood pressure monitoring, to bring results in on next visit - Goal of BP <130/80 Juan F Farmer DO Return if no improvement. Follow up with Juan F Farmer DO. Discussed risks, benefits, alternatives, and potential side effects of medications. Patient/Guardian expressed understanding and agreed with the plan. See patient instructions. Juan F Farmer DO [address] [place] [address] Referring Provider: JUAN F FARMER [[id number]] Allergies As of Date: 08/13/2017 Noted Allergy Reaction PENICILLINS 02/23/2014 7 - Swelling VICODIN (HYDROCODONE-ACETAMINOPHE*12/26/2013 1 - Mental Status Change Date Reviewed: 08/13/2017 Reviewed by: Michelle Pedroza LPN - Fully Assessed Reason for Visit: Follow Up [171] Cmt: 6 weeks Primary Visit Diagnosis:Polyuria [R35.8] Other Visit Diagnoses:Urinary frequency [R35.0] Elevated CK [R74.8] Myalgia [M79.1] Hyperlipidemia, mixed [E78.2] Elevated blood pressure reading without diagnosis of hypertension [R03.0] Order(s):ADH/ARGININE VASOPRS [SQADH] Order #: [id number] FUTURE COMP METABOLIC PANEL [SQCMP] Order #: [id number] FUTURE CK CREATINE KINASE [SQCK] Order #: [id number] FUTURE URINALYSIS WITH MICROSCOPIC [SQUAWMIC] Order #: [id number]. #:[id number] Prescriptions as of 08/13/2017 Sig: TAMSULOSIN 0.4 MG CAPSULE Take 1 capsule by mouth daily* PRAVASTATIN 20 MG TABLET Take 1 tablet by mouth once d* LATANOPROST 0.005 % EYE DROPS Use 1 Drop in both eyes daily* IBUPROFEN 200 MG CAPSULE Take by mouth every 4 hours * Medication notes this encounter HYDROCORTISONE 1 % TOPICAL CREAM WITH PERINEAL APPLICATOR >> Michelle Pedroza LPN 08/13/2017 3:21 PM >> MICHELLE PEDROZA LPN SunAug 13, 2017 3:21 PM Finished HYDROCORTISONE ACETATE 25 MG RECTAL SUPPOSITORY >> Michelle Pedroza LPN 08/13/2017 3:21 PM >> MICHELLE PEDROZA LPN SunAug 13, 2017 3:21 PM Finished Problem List As Of Date 08/13/2017 Noted Resolved Cervical radiculopathy [M54.12] INVALID FOR* Mild carpal tunnel syndrome of left wrist [G56.*INVALID FOR* Neck pain [M54.2] INVALID FOR* Cervical radiculopathy at C8 [M54.12] INVALID FOR* Hypertriglyceridemia [E78.1] INVALID FOR* Obesity, Class II, BMI 35-39.9 [E66.9] INVALID FOR* Well adult exam [Z00.00] INVALID FOR* Muscle spasm [M62.838] INVALID FOR* Urinary frequency [R35.0] INVALID FOR* Internal hemorrhoids [K64.8] INVALID FOR* Hyperlipidemia, mixed [E78.2] INVALID FOR* Other instructions from your clinician: Monitor blood pressure- goal is 130/80 or less. If in 140s/90s or higher then let me know and we will need to start Losartan or Metoprolol Medications Discontinued During This Encounter hydrocortisone (PROCTOCORT) 1 % crpe 1 Tu* 11 03/07/2017 08/13/2017 Class: Print RX Route: RECTAL Si application by RECTAL route twice daily as needed (hemorrhoids). Disc: Reason for discontinue is not on file. hydrocortisone (ANUCORT-HC) 25 mg beach* 20 S* 1 03/07/2017 08/13/2017 Class: Print RX Route: RECTAL Si Suppository by RECTAL route twice daily as needed (internal hemorrhoids). Disc: Reason for discontinue is not on file. Yeast Cell-Shark Sincere-Emoll (HEMORRHO* 0 01/22/2017 08/13/2017 Class: Historical Med Route: RECTAL Sig: by RECTAL route as needed. Disc: Reason for discontinue is not on file. Encounter Status:Closed by JUAN F FARMER DO on 08/14/17 CT BRAIN WO IVCON Observed: 07/05/2017 Status: F Source: [facility] 2:11 PM [facility] REPOSITORY * * *Final Report* * * DATE OF EXAM: Jul 05 2017 2:11PM [facility] [place] [facility] - CT BRAIN WO IVCON / PROCEDURE REASON: Muscle weakness (generalized) * * * * Physician Interpretation * * * * EXAMINATION: CT BRAIN WO IVCON CLINICAL HISTORY: Muscle weakness (generalized) TECHNIQUE: Serial axial images without IV contrast were obtained from the vertex to the foramen magnum. MQ: [id number] CT Dose-Length Product (DLP): 580 mGy*cm CT Dose Reduction Employed: No dose reduction techniques were required COMPARISON: None. RESULT: Post-operative change: None. Acute change: No evidence of an acute infarct or other acute parenchymal process. Hemorrhage: No evidence of acute intracranial hemorrhage. Mass Lesion / Mass Effect: There is no evidence of an intracranial mass or extraaxial fluid collection. No significant mass effect. Chronic change: None apparent. Parenchyma: There is no significant volume loss. The brain parenchyma is otherwise within normal limits for age. Ventricles: The ventricles are within normal limits of size and configuration for age. Paranasal sinuses and skull base: The visualized paranasal sinuses are grossly clear. The skull base and imaged soft tissues are unremarkable. IMPRESSION: No findings of an acute intracranial process. Human Projectile: PSCB Transcribe Date/Time: Jul 05 2017 2:16P Dictated by : BRUNO LUU DO This examination was interpreted and the report reviewed and electronically signed by: MJ BLANC MD on Jul 05 2017 2:32PM EST [id number] Observed: 07/05/2017 Status: COMPLETED Source: [place] 2:05 PM [facility] REPOSITORY HNO ID: [id number] Author: GUIDO Toscano (Ct) Service: Radiology Author Type: Clinical Sheet Metal Assembler Type: Progress Notes Filed: 07/05/2017 2:09 PM Note Text: Radiology Service Progress Note PATIENT NAME: Fabian Juarez DATE OF SERVICE: July 05, 2017 TIME: 2:05 PM PATIENT IDENTITY VERIFICATION COMPLETED USING TWO (2) METHODS: Patient confirmed name verbally and ID band matches.. PATIENT GENDER DATA: Male PATIENT RELEVANT IMPLANT DATA REVIEWED: Yes RADIOLOGY DEPARTMENT: CT; Exam(s) Completed: Brain PERIPHERAL IV DATA: Not applicable SIGNED BY: GUIDO Toscano July 05, 2017 2:05 PM CK Collected: 07/03/2017 Status: F Source: [facility] 4:06 PM [facility] [place] REPOSITORY TYPE CODE TESTS RESULT OUT OF RANGE REFERENCE UNITS LAB CK 51-298 U/L High CK 499 Result Comment: Please note the updated, gender-specific reference range for this test (effective 01/27/2016). Performed By: #### CK #### [facility] [address] [place], [place] [address] URINALYSIS WITH Collected: 07/03/2017 Status: F Source: [facility] 4:06 PM [facility] [place] REPOSITORY TYPE CODE TESTS RESULT OUT OF REFERENCE UNITS RANGE LAB UCOL Yellow Color Yellow LAB [facility] Clear Clarity Clear LAB UGLUC Negative mg/dL Glucose, Urine Negative LAB UBIL Negative Bilirubin, Urine Negative LAB UKET Negative Ketones, Urine Negative LAB USPG 1.005-1.030 Specific [place], Ur 1.014 LAB UHGB Negative Hemoglobin/Blood, Negative Ur LAB UPH 4.5-8.0 pH 6.0 LAB UPROT Negative mg/dL Protein, Urine Negative LAB UUROB Normal Urobilinogen Normal LAB UNITR Negative Nitrites Negative LAB ULKEST Negative Leukest Negative LAB UCOM Comments SEE COMMENT Result Comment: N/A LAB UMCOM Urine SEE Syd Comment COMMENT Result Comment: N/A LAB UWBC 0-5 /HPF WBC 0-5 LAB URBC 0-3 /HPF RBC 0-3 Performed By: #### UAWMIC #### [facility] [address] [place], [place] [address] MYOGLOBIN, URINE Collected: 07/03/2017 Status: F Source: [place] 4:06 PM [facility] REPOSITORY TYPE CODE TESTS RESULT OUT OF RANGE REFERENCE UNITS LAB UMYO 0-1 mg/L <1 Myoglobin, Urine Result Comment: (NOTE) INTERPRETIVE INFORMATION: Myoglobin, Urine Patients with urine myoglobin greater than 15 mg/L are at risk of acute renal failure. Usual results are less than 1 mg/L. Results between 1 and 15 mg/L are associated with vigorous exercise, myocardial infarction, mild muscle injury and other conditions. Test developed and characteristics determined by [facility]. See Compliance Statement B: [employer]/CS Performed by [facility], [address] [place] [address] [email or web address], Melo Bella MD, Lab. Director Performed By: #### UMYO #### [facility] [address] [place] [address] [phone] PROGRESS Observed: 07/02/2017 Status: COMPLETED Source: [place] 7:26 AM [facility] REPOSITORY HNO ID: [id number] Author: Juan F Farmer Service: (none) Author Type: Physician Type: Progress Notes Filed: 07/02/2017 7:31 AM Note Text: CC:Fabian Juarez is a 46 year old male who presents to the office for follow up HPI: Patient present with in the office today Persistent and increased symptoms of hand tremor, with rest and with action per patient, b/l hands, right >left, is RHD. 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 Not dropping objects, no known injuries. Also weakness b/l thighs/legs and tingling in b/l lower legs diffusely. No recent falls, slow to get out of a seated position to stand. Difficulty with even climbing 1 flight of steps. is concerned that he is sometimes awkward in his gait, shuffling like. Father had parkinson's disease PAST MEDICAL HISTORY Diagnosis Date - Arthritis ? Rheumatoid arthrits [facility] Dr[facility]ing[facility] OA PAST SURGICAL HISTORY Procedure Laterality Date - APPENDECTOMY 1977 - HERNIA REPAIR HX 09/2003 Current Outpatient Prescriptions: pravastatin (PRAVACHOL) 20 mg tablet Take 1 tablet by mouth once daily. hydrocortisone (PROCTOCORT) 1 % crpe 1 application by RECTAL route twice daily as needed (hemorrhoids). hydrocortisone (ANUCORT-HC) 25 mg suppository 1 Suppository by RECTAL route twice daily as needed (internal hemorrhoids). latanoprost (XALATAN) 0.005 % ophthalmic solution Use 1 Drop in both eyes daily at bedtime. TO AFFECTED EYE(S) Ibuprofen 200 mg cap Take by mouth every 4 hours as needed. FOR PAIN. tamsulosin ER (FLOMAX) 0.4 mg cp24 Take 1 capsule by mouth daily at bedtime. Yeast Cell-Shark Sincere-Emoll (HEMORRHOIDAL) oint by RECTAL route as needed. No current facility-administered medications for this visit. ALLERGIES Allergen Reactions - Penicillins Swelling - Vicodin [Hydrocodon* Mental Status Change Social History Marital status: Spouse name: Years of education: Number of children: Social History Main Topics Smoking status: Former Smoker Packs/day: 0.00 Years: 0.00 Quit date: 02/12/2003 Smokeless tobacco: Current User Alcohol use: Yes Comment: occasionally Drug use: No Sexual activity: Yes Partners with: Female ROS: See HPI PE: BP 120/80 Pulse 68 Temp (Src) 97.6 (Right Tympanic) Resp 20 Wt 246 lb (111.6kg) Gen: AANDOX3, NAD, non-toxic appearing HEENT: PERRLA, EOMs intact b/l, nares without drainage, pharynx without erythema, exudate, lesions, or drainage. Uvula midline. Neck: No LAD, no thyromegaly, no meningismus. CV: RRR, no murmur Lungs: CTA b/l, no wheezing Skin: No rashes, lesions, or wounds on exposed skin. Neuro: weakness of b/l hand mortgage assistant and interossei strength right >left, normal biceps and triceps strength, normal DTR biceps. Weakness b/l thigh muscles 4/5, + romberg sign, dtr 1-2/4 b/l Patellar and symmetric, mild weakness b/l EHL and plantar push off testing, sensation intake ASSESSMENT/PLAN: 1. Tremor - ICD9: 781.0, ICD10: R25.1 (primary diagnosis) - EMG and NCT right arm and b/l legs as ordered, CT brain, labs as ordered. Very concerned due to multiple neuro muscular symptoms which seem to be worsening. Follow up with Neurologist if unable to determine cause - EMG(NEURO/NI) 2. Generalized muscle weakness - ICD9: 728.87, ICD10: M62.81 - EMG and NCT right arm and b/l legs as ordered, CT brain, labs as ordered. Very concerned due to multiple neuro muscular symptoms which seem to be worsening. Follow up with Neurologist if unable to determine cause - CT BRAIN WO IVCON - EMG(NEURO/NI) - CK CREATINE KINASE - SED RATE WESTERGREN - C-REACTIVE PROTEIN (CRP) - CK CREATINE KINASE - EMG(NEURO/NI) 3. Muscle stiffness - ICD9: 728.9, ICD10: M62.89 - EMG and NCT right arm and b/l legs as ordered, CT brain, labs as ordered. Very concerned due to multiple neuro muscular symptoms which seem to be worsening. Follow up with Neurologist if unable to determine cause - EMG(NEURO/NI) - CK CREATINE KINASE - SED RATE WESTERGREN - C-REACTIVE PROTEIN (CRP) - CK CREATINE KINASE - EMG(NEURO/NI) 4. Paresthesias in right hand - ICD9: 782.0, ICD10: R20.2 - EMG and NCT right arm and b/l legs as ordered, CT brain, labs as ordered. Very concerned due to multiple neuro muscular symptoms which seem to be worsening. Follow up with Neurologist if unable to determine cause - EMG(NEURO/NI) - EMG(NEURO/NI) 5. Hyperlipidemia, mixed - ICD9: 272.2, ICD10: E78.2 - good control - Encouraged following a low fat, low cholesterol diet. - Discussed the benefits of regular aerobic exercise and weight loss. - PRAVASTATIN 20 MG TABLET 6. Elevated fasting glucose - ICD9: 790.21, ICD10: R73.01 - HGB A1C Juan F Farmer DO Return if no improvement. Follow up with Juan F Farmer DO. Discussed risks, benefits, alternatives, and potential side effects of medications. Patient/Guardian expressed understanding and agreed with the plan. See patient instructions. Juan F Farmer DO [address] [place] [address] SED RATE WESTERGREN Collected: 06/29/2017 Status: F Source: [place] 4:14 PM [facility] [place] REPOSITORY TYPE CODE TESTS RESULT OUT OF REFERENCE UNITS RANGE LAB WSR 0-15 mm/hr Sed Rate Westergren 2 Performed By: #### WSR, CK, CRP, HBA1C #### [facility] [address] [place], [place] [address] CK Collected: 06/29/2017 Status: F Source: [facility] 4:14 PM [facility] [place] REPOSITORY TYPE CODE TESTS RESULT OUT OF RANGE REFERENCE UNITS LAB CK 51-298 U/L High CK 430 Result Comment: Please note the updated, gender-specific reference range for this test (effective 01/27/2016). Performed By: #### WSR, CK, CRP, HBA1C #### [facility] [address] [place], [place] [address] C-REACTIVE PROTEIN Collected: 06/29/2017 Status: F Source: [place] 4:14 PM [facility] REPOSITORY TYPE CODE TESTS RESULT OUT OF REFERENCE UNITS RANGE LAB CRP <0.9 mg/dL C-Reactive 0.1 Protein Performed By: #### WSR, CK, CRP, HBA1C #### [facility] [address] [place], [place] [address] HEMOGLOBIN A1C Collected: 06/29/2017 Status: F Source: [place] 4:14 PM [facility] REPOSITORY TYPE CODE TESTS RESULT OUT OF REFERENCE UNITS RANGE LAB HGBA1C 4.3-5.6 % Hemoglobin A1c 5.2 LAB HBA0 mg/dL Est. Average Glucose 103 Result Comment: eAG: (Estimated average glucose) is a calculated value from HgbA1c and is patient access representative of the average blood glucose level in the last 2-3 month period. Performed By: #### WSR, CK, CRP, HBA1C #### [facility] [address] [place], [place] [id number] CNPN Observed: 06/28/2017 Status: COMPLETED Source: [place] 12:00 AM [facility] REPOSITORY Telephone (MIQ) FABIAN JUAREZ ([id number]) 1970 M Date Time Provider Department 06/28/17 JUAN F FARMER MIQ During your visit today, we recorded the following information about you: Burt Agrawal PSR 06/28/2017 9:35 AM Addendum 1st attempt to call and schedule CT, EMG and 6-8 week follow up per Marleny. Left message for patient advising to call back and schedule when able. Allergies As of Date: 06/28/2017 Noted Allergy Reaction PENICILLINS 02/23/2014 7 - Swelling VICODIN (HYDROCODONE-ACETAMINOPHE*12/26/2013 1 - Mental Status Change Date Reviewed: 06/27/2017 Reviewed by: Michelle Pedroza LPN - Fully Assessed Reason for Visit: Appointment [186] Prescriptions as of 06/28/2017 Sig: PRAVASTATIN 20 MG TABLET Take 1 tablet by mouth once d* TAMSULOSIN 0.4 MG CAPSULE Take 1 capsule by mouth daily* HYDROCORTISONE 1 % TOPICAL CR* 1 application by RECTAL route* HYDROCORTISONE ACETATE 25 MG * 1 Suppository by RECTAL route* LATANOPROST 0.005 % EYE DROPS Use 1 Drop in both eyes daily* TISSUE RESP FACT-SHARK SINCERE OI* by RECTAL route as needed. IBUPROFEN 200 MG CAPSULE Take by mouth every 4 hours * Problem List As Of Date 06/28/2017 Noted Resolved Cervical radiculopathy [M54.12] INVALID FOR* Mild carpal tunnel syndrome of left wrist [G56.*INVALID FOR* Neck pain [M54.2] INVALID FOR* Cervical radiculopathy at C8 [M54.12] INVALID FOR* Hypertriglyceridemia [E78.1] INVALID FOR* Obesity, Class II, BMI 35-39.9 [E66.9] INVALID FOR* Well adult exam [Z00.00] INVALID FOR* Muscle spasm [M62.838] INVALID FOR* Urinary frequency [R35.0] INVALID FOR* Internal hemorrhoids [K64.8] INVALID FOR* Hyperlipidemia, mixed [E78.2] INVALID FOR* Encounter Status:Closed by BURT DAVALOS on 06/28/17 CNOV Observed: 06/27/2017 Status: COMPLETED Source: [place] 5:00 PM [facility] REPOSITORY Office Visit (FAMPWS) FABIAN JUAREZ ([id number]) 1970 M Date Time Provider Department 06/27/17 5:00 PM [facility] JUAN F Ding FAMPWS During your visit today, we recorded the following information about you: Temperature Pulse Respiration Blood pressure 97.6 degrees 68/minute 20/minute 120/80 Weight 111.6 kg Juan F Toña FarmerDO 07/02/2017 7:31 AM Signed CC:Fabian Juarez is a 46 year old male who presents to the office for follow up HPI: Patient present with in the office today Persistent and increased symptoms of hand tremor, with rest and with action per patient, b/l hands, right >left, is RHD. 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 Not dropping objects, no known injuries. Also weakness b/l thighs/legs and tingling in b/l lower legs diffusely. No recent falls, slow to get out of a seated position to stand. Difficulty with even climbing 1 flight of steps. is concerned that he is sometimes awkward in his gait, shuffling like. Father had parkinson's disease PAST MEDICAL HISTORY Diagnosis Date - Arthritis ? Rheumatoid [facility]rits [facility] PAST SURGICAL HISTORY Procedure Laterality Date - APPENDECTOMY 1977 - HERNIA REPAIR HX 09/2003 Current Outpatient Prescriptions: pravastatin (PRAVACHOL) 20 mg tablet Take 1 tablet by mouth once daily. hydrocortisone (PROCTOCORT) 1 % crpe 1 application by RECTAL route twice daily as needed (hemorrhoids). hydrocortisone (ANUCORT-HC) 25 mg suppository 1 Suppository by RECTAL route twice daily as needed (internal hemorrhoids). latanoprost (XALATAN) 0.005 % ophthalmic solution Use 1 Drop in both eyes daily at bedtime. TO AFFECTED EYE(S) Ibuprofen 200 mg cap Take by mouth every 4 hours as needed. FOR PAIN. tamsulosin ER (FLOMAX) 0.4 mg cp24 Take 1 capsule by mouth daily at bedtime. Yeast Cell-Shark Sincere-Emoll (HEMORRHOIDAL) oint by RECTAL route as needed. No current facility-administered medications for this visit. ALLERGIES Allergen Reactions - Penicillins Swelling - Vicodin [Hydrocodon* Mental Status Change Social History Marital status: Spouse name: Years of education: Number of children: Social History Main Topics Smoking status: Former Smoker Packs/day: 0.00 Years: 0.00 Quit date: 02/12/2003 Smokeless tobacco: Current User Alcohol use: Yes Comment: occasionally Drug use: No Sexual activity: Yes Partners with: Female ROS: See HPI PE: BP 120/80 Pulse 68 Temp (Src) 97.6 (Right Tympanic) Resp 20 Wt 246 lb (111.6kg) Gen: AANDOX3, NAD, non-toxic appearing HEENT: PERRLA, EOMs intact b/l, nares without drainage, pharynx without erythema, exudate, lesions, or drainage. Uvula midline. Neck: No LAD, no thyromegaly, no meningismus. CV: RRR, no murmur Lungs: CTA b/l, no wheezing Skin: No rashes, lesions, or wounds on exposed skin. Neuro: weakness of b/l hand mortgage assistant and interossei strength right >left, normal biceps and triceps strength, normal DTR biceps. Weakness b/l thigh muscles 4/5, + romberg sign, dtr 1-2/4 b/l Patellar and symmetric, mild weakness b/l EHL and plantar push off testing, sensation intake ASSESSMENT/PLAN: 1. Tremor - ICD9: 781.0, ICD10: R25.1 (primary diagnosis) - EMG and NCT right arm and b/l legs as ordered, CT brain, labs as ordered. Very concerned due to multiple neuro muscular symptoms which seem to be worsening. Follow up with Neurologist if unable to determine cause - EMG(NEURO/NI) 2. Generalized muscle weakness - ICD9: 728.87, ICD10: M62.81 - EMG and NCT right arm and b/l legs as ordered, CT brain, labs as ordered. Very concerned due to multiple neuro muscular symptoms which seem to be worsening. Follow up with Neurologist if unable to determine cause - CT BRAIN WO IVCON - EMG(NEURO/NI) - CK CREATINE KINASE - SED RATE WESTERGREN - C-REACTIVE PROTEIN (CRP) - CK CREATINE KINASE - EMG(NEURO/NI) 3. Muscle stiffness - ICD9: 728.9, ICD10: M62.89 - EMG and NCT right arm and b/l legs as ordered, CT brain, labs as ordered. Very concerned due to multiple neuro muscular symptoms which seem to be worsening. Follow up with Neurologist if unable to determine cause - EMG(NEURO/NI) - CK CREATINE KINASE - SED RATE WESTERGREN - C-REACTIVE PROTEIN (CRP) - CK CREATINE KINASE - EMG(NEURO/NI) 4. Paresthesias in right hand - ICD9: 782.0, ICD10: R20.2 - EMG and NCT right arm and b/l legs as ordered, CT brain, labs as ordered. Very concerned due to multiple neuro muscular symptoms which seem to be worsening. Follow up with Neurologist if unable to determine cause - EMG(NEURO/NI) - EMG(NEURO/NI) 5. Hyperlipidemia, mixed - ICD9: 272.2, ICD10: E78.2 - good control - Encouraged following a low fat, low cholesterol diet. - Discussed the benefits of regular aerobic exercise and weight loss. - PRAVASTATIN 20 MG TABLET 6. Elevated fasting glucose - ICD9: 790.21, ICD10: R73.01 - HGB A1C Juan F Farmer DO Return if no improvement. Follow up with Juan F Farmer DO. Discussed risks, benefits, alternatives, and potential side effects of medications. Patient/Guardian expressed understanding and agreed with the plan. See patient instructions. Juan F Farmer DO [address] [place] [address] Referring Provider: JUAN F FARMER [[id number]] Allergies As of Date: 06/27/2017 Noted Allergy Reaction PENICILLINS 02/23/2014 7 - Swelling VICODIN (HYDROCODONE-ACETAMINOPHE*12/26/2013 1 - Mental Status Change Date Reviewed: 06/27/2017 Reviewed by: Michelle Pedroza LPN - Fully Assessed Reason for Visit: Follow Up [171] Cmt: 4 months Primary Visit Diagnosis:Tremor [R25.1] Other Visit Diagnoses:Generalized muscle weakness [M62.81] Muscle stiffness [M62.89] Paresthesias in right hand [R20.2] Hyperlipidemia, mixed [E78.2] Elevated fasting glucose [R73.01] Order(s):pravastatin (PRAVACHOL) 20 mg tabletTake 1 tablet by mouth once daily.Disp: 30 tabletRfl: 5 CT BRAIN WO IVCON [[id number]] Order #: [id number] FUTURE EMG(NEURO/NI) [20100513] Order #: [id number]: 1 FUTURE CK CREATINE KINASE [SQCK] Order #: [id number] FUTURE SED RATE WESTERGREN [SQWSR] Order #: [id number] FUTURE C-REACTIVE PROTEIN (CRP) [CRP] Order #: [id number] FUTURE HGB A1C [SAUKD2J] Order #: [id number] FUTURE EMG(NEURO/NI) [20100513] Order #: [id number]: 1 FUTURE Prescriptions as of 06/27/2017 Sig: PRAVASTATIN 20 MG TABLET Take 1 tablet by mouth once d* HYDROCORTISONE 1 % TOPICAL CR* 1 application by RECTAL route* HYDROCORTISONE ACETATE 25 MG * 1 Suppository by RECTAL route* LATANOPROST 0.005 % EYE DROPS Use 1 Drop in both eyes daily* IBUPROFEN 200 MG CAPSULE Take by mouth every 4 hours * TAMSULOSIN 0.4 MG CAPSULE Take 1 capsule by mouth daily* TISSUE RESP FACT-SHARK SINCERE OI* by RECTAL route as needed. Medication notes this encounter TAMSULOSIN 0.4 MG CAPSULE >> Michelle Pedroza LPN 06/27/2017 5:00 PM >> MICHELLE PEDROZA LPN SunJune 27, 2017 5:00 PM Finished TISSUE RESP FACT-SHARK SINCERE OIL RECTAL OINTMENT >> Michelle Pedroza LPN 06/27/2017 5:00 PM >> MICHELLE PEDROZA LPN SunJune 27, 2017 5:00 PM Finished Problem List As Of Date 06/27/2017 Noted Resolved Cervical radiculopathy [M54.12] INVALID FOR* Mild carpal tunnel syndrome of left wrist [G56.*INVALID FOR* Neck pain [M54.2] INVALID FOR* Cervical radiculopathy at C8 [M54.12] INVALID FOR* Hypertriglyceridemia [E78.1] INVALID FOR* Obesity, Class II, BMI 35-39.9 [E66.9] INVALID FOR* Well adult exam [Z00.00] INVALID FOR* Muscle spasm [M62.838] INVALID FOR* Urinary frequency [R35.0] INVALID FOR* Internal hemorrhoids [K64.8] INVALID FOR* Hyperlipidemia, mixed [E78.2] INVALID FOR* Prescriptions ordered this encounter Disp Refills Start End PRAVASTATIN 20 MG TABLET 30 t* 5 06/27/2017 Route: ORAL Sig: Take 1 tablet by mouth once daily. Medications Discontinued During This Encounter pravastatin (PRAVACHOL) 20 mg tablet 30 t* 5 03/07/2017 06/27/2017 Route: ORAL Sig: Take 1 tablet by mouth once daily. Disc: Reason for discontinue is not on file. Encounter Status:Closed by JUAN F FARMER DO on 07/02/17 ALLERGIES ALLERGIES DATE TYPE / CODE NAME / CODE REACTION SEVERITY SOURCE 11/14/2017 DRUG PRAVASTATIN SODIUM Myalgia [facility] INGREDI/[address] [place] 037209(SNOM Repository ED CT) 02/23/2014 Drug PENICILLINS SWELLING [facility] Class/35875 [place] 1003(SNOMED Repository CT) 12/26/2013 DRUG/359973 HYDROCODONE-ACETAM Mental Chg [facility] 003(SNOMED INOPHEN [place] [facility]) Repository ENCOUNTERS ENCOUNTERS ADMIT/DISCHARGE ACCOUNT ADMITTING ENCOUNTER LOCATION SOURCE NUMBER CLASS 03/02/2018 [id number] [facility] ing:LAB Repository 11/14/2017/11/16/19 [id number] Ambulatory [address] [place] Repository 11/14/2017/11/16/19 [id number] Ambulatory [address] [place] Repository 08/13/2017/08/14/19 [id number] Ambulatory [address] [place] Repository 08/13/2017/08/15/19 [id number] Ambulatory [address] [place] Repository 07/05/2017/07/12/19 [id number] Ambulatory [address] [place] Repository 07/05/2017/07/06/19 [id number] Ambulatory [address] [place] Repository 07/05/2017/07/11/19 [id number] Ambulatory [address] [place] Repository 07/03/2017/07/04/19 [id number] Ambulatory [address] [place] Repository 06/29/2017/06/30/19 [id number] Ambulatory [address] [place] Repository 06/27/2017/07/03/19 [id number] Ambulatory [address] Repository PAYERS PAYERS ENCOUNTER GUARANTOR PAYER SUBSCRIBER SOURCE 03/02/2018 FABIAN Benton Primary Insurance:R FABIAN Martínez [id number] [facility] [id number] EILEENB: [facility] JESSICA [place]: [id number] [id number] Repository [address]Dqk: ([phone]) Date:0925-05-64LM [phone] () [address] [address]EK: 03/02/2018 Secondary NOT GIVENSASHA Martínez Insurance:SELF PAY [facility] Number: Effective Repository Date:2018-03-02
== END ==
LOC: LAB 07:17
PROVIDERS: Family Provider Student in an Organized Health Care Education/Training Program; PCP Student in an Organized Health Care Education/Training Program; Referring Provider Student in an Organized Health Care Education/Training Program; Visit Provider Student in an Organized Health Care Education/Training Program
DX: Z79.899 Other long term (current) drug therapy (principal)
CPT/HCPCS: 36415; 80061

== ENCOUNTER 2018-04-17 07:36 | Observation (INO) | payer OTHER, SELFPAY ==
[2018-04-17] VITALS (12 sets, daily range): BP systolic 118–149; BP diastolic 70–101; PULSE 68–83; RESP 16–18; TEMP 36.6–36.9; O2SAT 95–100; BMI 36.2; BMI 35.0; BMI 35.1
--- NOTE | 2018-04-17 07:54 | EKG12_ITS ---
Test Reason : CP Blood Pressure : / mmHG Vent. Rate : 077 BPM Atrial Rate : 077 BPM P-R Int : 160 ms QRS Dur : 086 ms QT Int : 358 ms P-R-T Axes : 047 052 042 degrees QTc Int : 405 ms Normal sinus rhythm Normal ECG Confirmed by MARTITA RHODES MD ([id number]), visual effects editor GENNA VARGAS ([id number]) on 04/23/2018 8:49:28 AM Referred By: TL Confirmed By:MARTITA RHODES MD
--- NOTE | 2018-04-17 08:00 | RAD_ITS ---
STUDY: X-RAY CHEST REASON FOR EXAM: Male, 47 years old. Chest pressure TECHNIQUE: Single AP portable view of the chest. COMPARISON: Chest x-ray 01/12/2017 FINDINGS: The lungs are clear and expanded. There is no demonstrated pleural abnormality. Normal size heart. Normal mediastinum and beatrice. Normal visualized pulmonary arteries. Normal visualized aortic arch and descending thoracic aorta. Normal visualized thoracic spine. Normal visualized ribs, clavicles, and shoulders. There is no demonstrated abnormality of the visualized soft tissue structures of the upper abdomen. RAD/Chest 1 View (Portable) IMPRESSION: Normal x-ray examination of the chest. Electronically Signed: Ingrid Ramos, at 8:35 EST Tel , Service support ,
[2018-04-17 08:01] LABS: Absolute Lymphocyte Count 1.68 X10^3/ul (0.83-4.51); Absolute Neutrophil Count 3.9 X10^3/uL (2.0-7.7); Basophil# 0.02 X10^3/uL; Basophil% 0.3 % (0-1); Eosinophil# 0.12 X10^3/uL; Eosinophils% 1.9 % (0-5); Hematocrit 44.2 % (40-54); Hemoglobin 14.9 g/dl (13.0-16.5); Lymphocyte # 1.68 X10^3/ul (4.0); Lymphocyte % 26.4 % (19-41); Mean Corp Hgb Conc 33.7 g/gl (32-36); Mean Corpuscular Hgb 30.1 pg (27.0-32.0); Mean Corpuscular Volume 89.3 fL (80-94); Mean Platelet Vol. 9.7 fl (6.2-12.0); Monocyte# 0.63 X10^3/uL; Monocyte% 9.9 % (0-10); Neutrophil # 3.89 X10^3/uL (2.7-7.7); POSITIVE COUNT NO; POSITIVE DIFFERENTIAL NO; POSITIVE MORPHOLOGY NO; Platelet Count 218 K/mm3 (150-450); RBC Distribution Width CV 12.5 % (11.6-14.6); RBC Distribution Width SD 40.2 fl (35.1-43.9); Red Blood Count 4.95 M/mm3 (4.6-6.2); White Blood Count 6.4 K/mm3 (4.4-11.0)
[2018-04-17] MEDS: Aspirin 81 MG TAB.CHEW 324 MG PO (08:01)
[2018-04-17] MEDS: 0.9% Normal Saline 1,000 ML 75 ML IV (08:01)
--- NOTE | 2018-04-17 08:01 | ED.VISSUMM ---
- ER Visit Summary Date of Service: 04/17/18 Chief Complaint: Chest pain, shortness of breath History of Present Illness: The patient is a 47 M with history of hypertension, hyperlipidemia, and prior smoking history presents to the emergency department chest pain. Patient states over the past few days, has had intermittent chest tightness that radiates to his neck. He states is worse if he goes up and down stairs. Today, the pain got worse and he felt lightheaded. He denies any trouble speaking or swallowing. He denies any vision changes. He states the pain is mostly in the left check of the left neck. He denies cough. Denies fevers or chills. Patient denies any history of coronary vascular disease. He states his never had a heart catheterization or stress test. Physical Examination: Vital signs reviewed General: Well-nourished, well-developed Head: Normocephalic, atraumatic Eyes: Pupils equal and reactive, extraocular muscles intact Neck, supple, no lymphadenopathy Heart: Regular rate and rhythm Respiratory: No distress, clear bilaterally Abdomen: Soft, nontender, nondistended, no peritoneal signs Back: Nontender Extremities: Nontender, no edema, no cords Skin: Normal color no rash Neuro: Alert and oriented, no focal or lateralizing deficits Test Results: [] Emergency Department Course and Treatment: Patient presents to the emergency department chest tightness that radiates into his neck and arm. It was worse with exertion. EKG was obtained. It was sinus rhythm without any acute ischemic change. Screening labs were obtained. These are unremarkable. The patient had nitro applied to his chest and he is now pain-free. Given the patient's age and symptoms that are concerning for angina, I do feel that he would benefit from admission with cardiac risk stratification. Patient was discussed with the hospitalist. Treatment Plan: [] Disposition: Admission Impression: 1. Chest pain This note was generated with [employer] dictation software. It may contain incorrect words, spelling, and punctuation that were not noted in review of the chart prior to signing ED Disposition - Plan for ED Patient: Referrals: Juan F Moss DO [Primary Care Provider] -
[2018-04-17 08:12] LABS: Anion Gap 8 (5-15); BUN 20 mg/dL (7-18); BUN/Creat Ratio 19.2 RATIO (10-20); Calcium,Total 9.3 mg/dL (8.5-10.1); Chloride 108 mmol/L (98-107); Creatinine, Serum 1.04 mg/dL (0.70-1.30); EST Glomerular Filtration Rate 81 mL/min (>60); Est Glom Filt Rate - Afr Amer 98 mL/min (>60); Estimated Creatinine Clearance 88.72 ml/min; Glucose 100 mg/dL (74-106); Potassium 4.4 mmol/L (3.5-5.1); Sodium Level 143 mmol/L (136-145)
--- NOTE | 2018-04-17 09:02 | NURSING ---
PCU OBS JUSTYN MCNAIR
[2018-04-17] MEDS: Nitroglycerin Oint 1 INCH PACKET TRANSDERM. (09:21)
[2018-04-17] MEDS: Ondansetron 4 MG/2 ML Vial IV (09:22)
--- NOTE | 2018-04-17 10:16 | EKG12_ITS ---
Test Reason : CP ADMIT Blood Pressure : / mmHG Vent. Rate : 071 BPM Atrial Rate : 071 BPM P-R Int : 160 ms QRS Dur : 092 ms QT Int : 376 ms P-R-T Axes : 043 048 039 degrees QTc Int : 408 ms Normal sinus rhythm Normal ECG When compared with ECG of 17-APR-2018 07:41, MANUAL COMPARISON REQUIRED, DATA IS UNCONFIRMED Confirmed by MEAGAN HARDY, MARTITA ([id number]), editor magazine GENNA VARGAS ([id number]) on 04/19/2018 1:51:50 PM Referred By: TABBY Confirmed By:MARTITA RHODES MD
[2018-04-17] MEDS: Enoxaparin 40 MG/0.4 ML Syringe SC (10:57)
--- NOTE | 2018-04-17 13:40 | PCM.HP.STD ---
Problem List (1) Chest pain Status: Acute History of Present Illness Date of Admission: 04/17/18 Chief Complaint: Chest pain The patient is a 47 year old M with PMH as below who presents with a few day history of chest pain on exertion. He states that he was having intermittent chest tightness and pain that was radiating to his neck and he would have worse SOB when he was going up and down stairs. The pain would resolve with rest. He presented to the ER where nitro relieve the pain, though he now has a headache. He denies any fevers or chills and states he has not had any pain like this prior to the last couple of days. Does have a family history of coronary artery disease with 8 stents placed in his father at the age of 86, and he has 2 sisters who have had heart attacks, and he is a former smoker who quit 15 years ago. Past Medical History Allergies Penicillins [PCN] Allergy (Verified 04/17/18 07:40) Angioedema Offkydb-Tcr-Zyb Reductase Inhibitor Allergy (Verified 04/17/18 07:40) Unknown acetaminophen [From Vicodin] Adverse Reaction (Verified 04/17/18 07:40) Nausea hydrocodone [From Vicodin] Adverse Reaction (Verified 04/17/18 07:40) Nausea Home Medications: Ambulatory Orders Medication Instructions Recorded Baclofen 10 mg PO TID PRN 04/17/18 Montelukast [Singulair] 10 mg PO QHS 04/17/18 Tamsulosin HCl 0.4 mg PO QHS 04/17/18 Timolol Maleate 1 drop EACH EYE BID 04/17/18 Surgical History: herniorrhaphy - Umbilical Smoking Status: Former smoker Tobacco Use: Cigarettes Alcohol: None Drugs: None - *Family History Maternal History Items: Heart Disease Paternal History Items: Hypertension Review of Systems Constitutional: Denies: Chills, Fever, Weight Change HEENT: Denies: Head Aches, Sinus Congestion, Sinus Drainage Cardiovascular: Reports: Chest Pain, Chest Tightness. Denies: Palpitations Respiratory: Reports: Shortness of Breath. Denies: Cough, Shortness of breath at rest, Sputum production Gastrointestinal: Denies: Abdominal Pain, Nausea, Vomiting Genitourinary: Denies: Dysuria Musculoskeletal: Denies: Joint Pain, Joint Tenderness Skin: Denies: Rash, Wounds Neurological: Denies: Numbness, Tingling, Focal weakness Psychiatric: Denies: Anxiety, Depression Hematologic/ Lymphatic: Denies: Easy Bruising, Easy Bleeding VTE Information - Inpt Only VTE Present on Admission: No Patient Problems: Active and Suspected Problems Chest pain (Acute) - Physical Exam General: Alert, Oriented x3, Cooperative, No apparent distress HEENT: Atraumatic, PERRLA, EOMI, Normocephalic Oral: Moist Mucosa Neck: Supple, No JVD, Trachea Midline Lungs: Clear to auscultation, Normal air movement, No rhonchi, No wheeze, No rales Cardiovascular: Regular rate, Regular Rhythm, Normal S1, Normal S2, No murmurs Abdomen: Soft, Non Tender, Non-Distended, No Hepato-splenomegaly Extremities: No edema, Capillary Refill Less than 3 Seconds Skin: No rashes, No breakdown Neurological: Neuro grossly intact, Sensory exam intact to light touch and pain Psych/Mental Status: Normal Affect, Appropriate Vital Signs Temp Pulse Resp BP Pulse Ox 98.3 F 77 16 136/77 H 98 04/17/18 10:06 04/17/18 11:00 04/17/18 10:06 04/17/18 10:06 04/17/18 10:06 Oxygen Flow Rate (L/min) 2 Oxygen Delivery Method Room Air Weight: 244 lb 7.882 oz Body Mass Index (BMI) 35.0 Laboratory Tests Past 24 Hrs 04/17/18 04/17/18 04/17/18 07:45 07:45 10:35 WBC 6.4 RBC 4.95 Hgb 14.9 Hct 44.2 MCV 89.3 MCH 30.1 MCHC 33.7 RDW 12.5 RDW Differential 40.2 Plt Count 218 MPV 9.7 Immature Gran % (Auto) 0.500 Neut % (Auto) 61.0 Lymph % (Auto) 26.4 [place] % (Auto) 9.9 Eos % (Auto) 1.9 Baso % (Auto) 0.3 Absolute Neuts (auto) 3.9 Absolute Lymphs (auto) 1.68 Total Counted Not Reportable Sodium 143 Potassium 4.4 Chloride 108 H Carbon Dioxide 27.0 Anion Gap 8 BUN 20 H Creatinine 1.04 Estim Creat Clear Calc 88.72 Est GFR (MDRD) Af Amer 98 Est GFR (MDRD) Non-Af 81 BUN/Creatinine Ratio 19.2 Glucose 100 Calcium 9.3 Troponin I < 0.015 < 0.015 Assessment/Plan All Active Problems Chest pain (Acute) 1. Chest pain -In the ER was normal sinus rhythm without any acute ischemic changes -Troponin x2 is negative -Will plan for a nuclear exercise stress test in the morning as it could not be done today -If normal will plan to discharge tomorrow -Lipid panel in a.m. for further risk stratification 2. Glaucoma -Stable -continue with timolol 3. Muscle spasms -Stable -Continue with baclofen 4. BPH -Stable -Continue with Flomax 5. Sinusitis -Stable -He is on Singulair though he gets more benefit from saline lavages DVT: Lovenox and SCDs Code Visit OBSV E&M: 93581 Initial observation care L3
[2018-04-17] MEDS: Acetaminophen 325 MG Tablet 650 MG PO (13:51)
[2018-04-17] MEDS: Montelukast 10 MG Tablet PO (22:11)
[2018-04-17] MEDS: Timolol 0.5% 5ML OPTH.BTL 1 DRP EACH EYE (22:11)
[2018-04-17] MEDS: Tamsulosin HCl 0.4 MG Capsule PO (22:11)
[2018-04-18 03:06] VITALS: PULSE 76
[2018-04-18 04:00] VITALS: BP 123/78; PULSE 68; RESP 16; TEMP 36.6; O2SAT 97
[2018-04-18 05:21] LABS: Absolute Lymphocyte Count 1.56 X10^3/ul (0.83-4.51); Absolute Neutrophil Count 3.2 X10^3/uL (2.0-7.7); Basophil# 0.02 X10^3/uL; Basophil% 0.4 % (0-1); Eosinophil# 0.18 X10^3/uL; Eosinophils% 3.2 % (0-5); Hematocrit 42.9 % (40-54); Hemoglobin 14.1 g/dl (13.0-16.5); Lymphocyte # 1.56 X10^3/ul (4.0); Lymphocyte % 27.8 % (19-41); Mean Corp Hgb Conc 32.9 g/gl (32-36); Mean Corpuscular Hgb 29.6 pg (27.0-32.0); Mean Corpuscular Volume 90.1 fL (80-94); Mean Platelet Vol. 9.9 fl (6.2-12.0); Monocyte# 0.63 X10^3/uL; Monocyte% 11.2 % (0-10); Neutrophil # 3.19 X10^3/uL (2.7-7.7); Neutrophil % 56.7 % (47-70); Platelet Count 214 K/mm3 (150-450); RBC Distribution Width CV 12.5 % (11.6-14.6); Red Blood Count 4.76 M/mm3 (4.6-6.2); White Blood Count 5.6 K/mm3 (4.4-11.0)
[2018-04-18 05:26] LABS: Partial Thromboplast Time 30.9 Seconds (24.1-36.2); Prothrombin Time (Protime)PT. 13.4 SECONDS (11.7-14.9)
[2018-04-18 05:28] LABS: POSITIVE COUNT NO; POSITIVE DIFFERENTIAL NO; POSITIVE MORPHOLOGY NO
[2018-04-18] MEDS: Aspirin E.C. 81 MG Tablet PO (05:31)
[2018-04-18 05:33] LABS: Anion Gap 8 (5-15); BUN 20 mg/dL (7-18); BUN/Creat Ratio 17.5 RATIO (10-20); Calcium,Total 8.5 mg/dL (8.5-10.1); Chloride 111 mmol/L (98-107); Cholesterol 170 mg/dL (200); Creatinine, Serum 1.14 mg/dL (0.70-1.30); EST Glomerular Filtration Rate 72 mL/min (>60); Est Glom Filt Rate - Afr Amer 88 mL/min (>60); Estimated Creatinine Clearance 80.93 ml/min; Glucose 113 mg/dL (74-106); High Density Lipoprotein 39 mg/dL; Potassium 4.3 mmol/L (3.5-5.1); Sodium Level 146 mmol/L (136-145); Triglycerides 208 mg/dL; Very Low Density Lipoprotein 42 mg/dL (5-40)
--- NOTE | 2018-04-18 05:55 | EKG12_ITS ---
Test Reason : AM Blood Pressure : / mmHG Vent. Rate : 074 BPM Atrial Rate : 074 BPM P-R Int : 156 ms QRS Dur : 096 ms QT Int : 382 ms P-R-T Axes : 054 069 054 degrees QTc Int : 424 ms Normal sinus rhythm Normal ECG When compared with ECG of 17-APR-2018 10:28, MANUAL COMPARISON REQUIRED, DATA IS UNCONFIRMED Confirmed by MEAGAN HARDY, MARTITA ([id number]), editor managing director GENNA VARGAS ([id number]) on 04/19/2018 1:49:32 PM Referred By: TABBY Confirmed By:MARTITA RHODES MD
[2018-04-18 06:04] VITALS: BP 119/74; PULSE 76; RESP 16; TEMP 36.8; O2SAT 96
[2018-04-18 06:27] VITALS: PULSE 86
[2018-04-18 08:29] VITALS: BP 130/83; PULSE 85; RESP 16; TEMP 37.1; O2SAT 96
--- NOTE | 2018-04-18 09:27 | STRESSREP ---
Stress Test Report Date: 04-18-18 Procedure: Exercise tolerance test/imaging study Indications: chest pain Consent: Per the patient Procedure: The patient exercised on a Jim protocol for 9 minutes completing Stage III achieving a peak heart rate of 155 bpm (90 % predicted maximal heart rate) with a peak blood pressure 158/82 mmHg and a peak MET capacity of 10 METs. The baseline ECG demonstrated normal sinus rhythm . The peak exercise ECG demonstrated no obvious ECG changes . There were no cardiac dysrhythmias pretest, during exercise, or recovery. The functional capacity was considered good . There was no complaint of chest discomfort during exercise or recovery. The examination was discontinued secondary to shoulder and hip discomfort . Impression: 1. Technically adequate (percent predicted maximal heart rate greater than 85%) exercise tolerance test 2. Peak exercise ECG with no obvious ECG changes 3. There were no cardiac dysrhythmias pretest, during exercise, or recovery 4. Nuclear images pending Myocardial perfusion imaging study: Technique: The patient was injected with 14.6 mCi of technetium 99m Cardiolite and subsequently rest SPECT Cardiolite nuclear imaging was obtained in the horizontal long, vertical long, and short axis views. The patient exercised on a Jim protocol for 9 minutes completing Stage I II achieving a peak heart rate of hundred 55 bpm (90 % predicted maximal heart rate) with a peak blood pressure 158/82 mmHg and a peak MET capacity of 10 METs. The patient was injected with 44.5 mCi of technetium 99m Cardiolite and subsequently stress SPECT Cardiolite nuclear imaging was obtained in the horizontal long, vertical long, and short axis views. A gated Cardiolite study at peak stress was obtained. Interpretation: Rest and stress SPECT Cardiolite nuclear imaging status post realignment, normalization, and attenuation correction, demonstrates the appearance of relative uniform tracer uptake and myocardial perfusion appearing within normal limits. There is end systolic thickening and brightening. The gated Cardiolite study demonstrates myocardial thickening and inward wall motion. The reported LVEF is 63 %. Impression: 1. Rest and stress SPECT Cardiolite nuclear imaging demonstrate relative uniform tracer uptake and myocardial perfusion appearing within normal limits. 2. The gated Cardiolite study reports an LVEF of 63 %. This note was generated with [employer] software. It may contain incorrect words, spelling, and punctuation that were not noted in checking the note before signing.
--- NOTE | 2018-04-18 09:31 | STRESSREP_ITS ---
Stress Test Report Date: 04-18-18 Procedure: Exercise tolerance test/imaging study Indications: chest pain Consent: Per the patient Procedure: The patient exercised on a Jim protocol for 9 minutes completing Stage III achieving a peak heart rate of 155 bpm (90 % predicted maximal heart rate) with a peak blood pressure 158/82 mmHg and a peak MET capacity of 10 METs. The baseline ECG demonstrated normal sinus rhythm . The peak exercise ECG demonstrated no obvious ECG changes . There were no cardiac dysrhythmias pretest, during exercise, or recovery. The functional capacity was considered good . There was no complaint of chest discomfort during exercise or recovery. The examination was discontinued secondary to shoulder and hip discomfort . Impression: 1. Technically adequate (percent predicted maximal heart rate greater than 85%) exercise tolerance test 2. Peak exercise ECG with no obvious ECG changes 3. There were no cardiac dysrhythmias pretest, during exercise, or recovery 4. Nuclear images pending Myocardial perfusion imaging study: Technique: The patient was injected with 14.6 mCi of technetium 99m Cardiolite and s ubsequently rest SPECT Cardiolite nuclear imaging was obtained in the horizontal long, vertical long, and short axis views. The patient exercised on a Jim protocol for 9 minutes completing Stage I II achieving a peak heart rate of hundred 55 bpm (90 % predicted maximal heart rate) with a peak blood pressure 158/82 mmHg and a peak MET capacity of 10 METs. The patient was injected with 44.5 mCi of technetium 99m Cardiolite and subsequently stress SPECT Cardiolite nuclear imaging was obtained in the horizontal long, vertical long, and short axis views. A gated Cardiolite study at peak stress was obtained. Interpretation: Rest and stress SPECT Cardiolite nuclear imaging status post realignment, normalization, and attenuation correction, demonstrates the appearance of relative uniform tracer uptake and myocardial perfusion appearing within normal limits. There is end systolic thickening and brightening. The gated Cardiolite study demonstrates myocardial thickening and inward wall motion. The reported LVEF is 63 %. Impression: 1. Rest and stress SPECT Cardiolite nuclear imaging demonstrate relative uniform tracer uptake and myocardial perfusion appearing within normal limits. 2. The gated Cardiolite study reports an LVEF of 63 %. This note was generated with [employer] software. It may contain incorrect words, spelling, and punctuation that were not noted in checking the note before signing.
--- NOTE | 2018-04-18 10:37 | DCINST_ITS ---
- Discharge Diagnoses Current Active Problems: Current Active and Chronic Problems Chest pain (Acute) You will use the following diet at home:: Regular Your food should be the consistency of: Regular Your liquids should be the consistency of: Regular/Thin Discharge Activity: Return to Normal Activity, No Restrictions Return to work on:: 04/22/18 Call your doctor if you observe: Fever of 101 or Higher, Shortness of breath, Dizziness, Fainting spells, Swelling in the ankles, Chest pain, Increased palpitations (irregular heartbeat) Allergies/Adverse Reactions: Allergies Penicillins [PCN] Allergy (Verified 04/17/18 07:40) Angioedema Lhxplmm-Lhi-Foh Reductase Inhibitor Allergy (Verified 04/17/18 07:40) Unknown acetaminophen [From Vicodin] Adverse Reaction (Verified 04/17/18 07:40) Nausea hydrocodone [From Vicodin] Adverse Reaction (Verified 04/17/18 07:40) Nausea Medications to take at Discharge Baclofen 10 mg PO TID PRN 04/17/18 Montelukast [Singulair] 10 mg PO QHS 04/17/18 Tamsulosin HCl 0.4 mg PO QHS 04/17/18 Timolol Maleate 1 drop EACH EYE BID 04/17/18 Primary Care Physician: Juan F Moss DO [Primary Care Provider] - Please follow up with your Primary Care Physician in: 3-5 days Test Results: Test results from this visit will be discussed in further detail at your follow- up appointment, if applicable.
--- NOTE | 2018-04-18 10:47 | DS.PCM_ITS ---
Discharge Date and Diagnosis - Problem List Patient Problems: Active and Suspected Problems Chest pain (Acute) Date of Admission: 04/17/18 Date of Discharge: 04/18/18 - Primary Discharge Diagnosis Active and Suspected Problems Chest pain (Acute) Hospital Course and Treatment Imaging Results: 04/18/18 06:00 Nuclear Stress Test - Treadmil [NM] Routine Consults: None Operations: None Procedures: Nuclear stress test - Impression: 1. Technically adequate (percent predicted maximal heart rate greater than 85%) exercise tolerance test 2. Peak exercise ECG with no obvious ECG changes 3. There were no cardiac dysrhythmias pretest, during exercise, or recovery 4. Nuclear images pending Impression: 1. Rest and stress SPECT Cardiolite nuclear imaging demonstrate relative uniform tracer uptake and myocardial perfusion appearing within normal limits. 2. The gated Cardiolite study reports an LVEF of 63 %. Summary of Care Provided: HPI: The patient is a 47 year old M with PMH as below who presents with a few day history of chest pain on exertion. He states that he was having intermittent chest tightness and pain that was radiating to his neck and he would have worse SOB when he was going up and down stairs. The pain would resolve with rest. He presented to the ER where nitro relieve the pain, though he now has a headache. He denies any fevers or chills and states he has not had any pain like this prior to the last couple of days. Does have a family history of coronary artery disease with 8 stents placed in his father at the age of 86, and he has 2 sisters who have had heart attacks, and he is a former smoker who quit 15 years ago. Hospital Course: 1. Chest pain -47-year-old male with 3-day history of chest pressure with shortness of breath, that would get worse on increased exertion climbing up and down the stairs. His troponins were negative x3 and his stress test this morning was normal. He stated that he does have some dizziness on occasion and thought that it could be related to the Flomax that he takes for weak stream. Furthermore a lipid panel was obtained this morning and his ASCVD risk is 3.3%, therefore does not qualify for statin therapy and he also stated that he had been on a statin previously and did not tolerated with severe myalgias. I do recommend that he follow-up with his primary care doctor in 3-5 days for further evaluation of his dizziness without syncope. Hopefully cessation of Flomax which can cause dizziness resolves this issue for him as well. 2. His other medical diagnoses were evaluated and his home medications were continued where appropriate Patient Problems: Active and Suspected Problems Chest pain (Acute) Objective: General: Alert, Oriented x3, Cooperative, No apparent distress HEENT: Atraumatic, PERRLA, EOMI, Normocephalic Oral: Moist Mucosa Neck: Supple, No JVD, Trachea Midline Lungs: Clear to auscultation, Normal air movement, No rhonchi, No wheeze, No rales Cardiovascular: Regular rate, Regular Rhythm, Normal S1, Normal S2, No murmurs Abdomen: Soft, Non Tender, Non-Distended, No Hepato-splenomegaly Extremities: No edema, Capillary Refill Less than 3 Seconds Skin: No rashes, No breakdown Neurological: Neuro grossly intact, Sensory exam intact to light touch and pain Psych/Mental Status: Normal Affect, Appropriate - Physical Exam Vital Signs Temp Pulse Resp BP Pulse Ox 98.8 F 85 16 130/83 H 96 04/18/18 08:29 04/18/18 08:29 04/18/18 08:29 04/18/18 08:29 04/18/18 08:29 Oxygen Flow Rate (L/min) 2 Oxygen Delivery Method Room Air Weight: 244 lb 7.882 oz Body Mass Index (BMI) 35.0 Intake and Output for Last 24 Hours 04/16/18 04/17/18 04/18/18 23:59 23:59 23:59 Intake Total 500 / 500 Balance 500 / 500 Laboratory Tests Past 24 Hrs 04/17/18 04/17/18 04/18/18 10:35 13:50 04:46 WBC RBC Hgb Hct MCV MCH MCHC RDW RDW Differential Plt Count MPV Immature Gran % (Auto) Neut % (Auto) Lymph % (Auto) [place] % (Auto) Eos % (Auto) Baso % (Auto) Absolute Neuts (auto) Absolute Lymphs (auto) Total Counted PT INR APTT Sodium 146 H Potassium 4.3 Chloride 111 H Carbon Dioxide 27.0 Anion Gap 8 BUN 20 H Creatinine 1.14 Estim Creat Clear Calc 80.93 Est GFR (MDRD) Af Amer 88 Est GFR (MDRD) Non-Af 72 BUN/Creatinine Ratio 17.5 Glucose 113 H Calcium 8.5 Troponin I < 0.015 < 0.015 Triglycerides 208 H Cholesterol 170 LDL Cholesterol 89 VLDL Cholesterol 42 H HDL Cholesterol 39 L 04/18/18 04/18/18 04:46 04:46 WBC 5.6 RBC 4.76 Hgb 14.1 Hct 42.9 MCV 90.1 MCH 29.6 MCHC 32.9 RDW 12.5 RDW Differential 41.0 Plt Count 214 MPV 9.9 Immature Gran % (Auto) 0.700 Neut % (Auto) 56.7 Lymph % (Auto) 27.8 [place] % (Auto) 11.2 H Eos % (Auto) 3.2 Baso % (Auto) 0.4 Absolute Neuts (auto) 3.2 Absolute Lymphs (auto) 1.56 Total Counted Not Reportable PT 13.4 INR 1.0 APTT 30.9 Sodium Potassium Chloride Carbon Dioxide Anion Gap BUN Creatinine Estim Creat Clear Calc Est GFR (MDRD) Af Amer Est GFR (MDRD) Non-Af BUN/Creatinine Ratio Glucose Calcium Troponin I Triglycerides Cholesterol LDL Cholesterol VLDL Cholesterol HDL Cholesterol Discharge Activity: Return to Normal Activity, No Restrictions Return to work on:: 04/22/18 Call your doctor if you observe: Fever of 101 or Higher, Shortness of breath, Dizziness, Fainting spells, Swelling in the ankles, Chest pain, Increased palpitations (irregular heartbeat) Home Medications: Medications to take at Discharge Baclofen 10 mg PO TID PRN 04/17/18 Montelukast [Singulair] 10 mg PO QHS 04/17/18 Tamsulosin HCl 0.4 mg PO QHS 04/17/18 Timolol Maleate 1 drop EACH EYE BID 04/17/18 Primary Care Physician: Juan F Moss DO [Primary Care Provider] - Please follow up with your Primary Care Physician in: 3-5 days Disposition: Home Minutes spent on discharge:: 35 Patient Condition:: Stable Medical Necessity - Tobacco Use Smoking Status: Former smoker Tobacco Use: Cigarettes Meaningful Use Info Meaningful Use Diagnoses (Choose all that apply): None applicable Code Visit OBSV E&M: 78173 Observation care discharge
[2018-04-18] MEDS: Timolol 0.5% 5ML OPTH.BTL 1 DRP EACH EYE (10:58)
--- NOTE | 2018-04-18 11:05 | PHA.DC.MR ---
Pharmacy Service has performed discharge medication reconciliation for this patient. The patient's discharge medication list was reviewed for discrepancies and discrepancies were resolved. Home Medications Baclofen 10 mg PO TID PRN 04/17/18 Montelukast [Singulair] 10 mg PO QHS 04/17/18 Tamsulosin HCl 0.4 mg PO QHS 04/17/18 Timolol Maleate 1 drop EACH EYE BID 04/17/18
== END 2018-04-18 10:37 | disposition home or self-care (01) ==
LOC: ED 08:03 → PCU 09:10
PROVIDERS: Admitting Provider Family Medicine; Emergency Provider Emergency Medicine; Family Provider Student in an Organized Health Care Education/Training Program; PCP Student in an Organized Health Care Education/Training Program; Visit Provider Family Medicine
DX: R07.89 Other chest pain (principal); I10 Essential (primary) hypertension; E78.5 Hyperlipidemia, unspecified; Z87.891 Personal history of nicotine dependence; R42 Dizziness and giddiness; M54.2 Cervicalgia; Z79.899 Other long term (current) drug therapy; Z82.49 Family history of ischemic heart disease and other diseases of the circulatory system; N40.0 Benign prostatic hyperplasia without lower urinary tract symptoms; H40.9 Unspecified glaucoma; R06.02 Shortness of breath
CPT/HCPCS: 36415; 71045; 78452; 80048; 80061; 84484; 85025; 85610; 85730; 93005; 93017; 96372; 96374; 99218; 99283; A9500; J7030; A4216; G0378; J2405